=== PATIENT | male | born 1985 | race Caucasian/White ===

== ENCOUNTER → 2021-07-27 | Outpatient (CLI) | payer OTHER ==
--- NOTE | 2021-07-30 08:31 | RAD ---
US ABDOMEN COMPLETE History: Reason: RUQ PAIN / Spl. Instructions: / History: Comparison: None. Technique: Sonographic examination of the abdomen was performed and multiple grayscale and color Dopp ler static images were obtained. Findings: Liver demonstrates normal echogenicity. The liver measures 16.0 cm. Portal flow is patent. Small gallbladder sludge. No gallbladder wall thickening or pericholecystic fluid. Common bile duct measures 2 mm in diameter. Visualized pancreas unremarkable. The right kidney measures 11.8 x 5.4 x 4.7 cm. No hydronephrosis. The left kidney measures 10.5 x 5.5 x 6.0 cm. No hydronephrosis. The spleen measures 11.3 cm. Visualized portions of the abdominal aorta and IVC are normal. IMPRESSION: 1. Small gallbladder sludge. Electronically signed by: Win Mensah DO (07/27/2021 10:36 AM) [id number]
== END ==
LOC: US 07:53
PROVIDERS: ATTEND Family Medicine
DX: K82.8 Other specified diseases of gallbladder (principal)
CPT/HCPCS: 76700